=== PATIENT | male | born 1940 | race Caucasian/White ===

== ENCOUNTER → 2018-03-11 | Outpatient (CLI) | payer OTHER | LOC: CIMAGING 13:08 | PROVIDERS: ATTEND Surgery | DX: M62.08 Separation of muscle (nontraumatic), other site (principal); N32.9 Bladder disorder, unspecified; K57.30 Diverticulosis of large intestine without perforation or abscess without bleeding; I31.3 Pericardial effusion (noninflammatory); I70.0 Atherosclerosis of aorta; R59.0 Localized enlarged lymph nodes; Z90.5 Acquired absence of kidney | CPT/HCPCS: 74176-PO ==

== ENCOUNTER → 2018-03-24 | Outpatient (CLI) | payer OTHER | LOC: BHLMT 11:30 | PROVIDERS: ATTEND Internal Medicine Cardiovascular Disease | DX: I48.91 Unspecified atrial fibrillation (principal); I25.10 Atherosclerotic heart disease of native coronary artery without angina pectoris | CPT/HCPCS: 93306-PO ==

== ENCOUNTER → 2018-03-26 | Outpatient (CLI) | payer OTHER | LOC: FIMAGING 10:37 | PROVIDERS: ATTEND Family Medicine | DX: J90 Pleural effusion, not elsewhere classified (principal); J98.4 Other disorders of lung | CPT/HCPCS: 82607-90 ==

== ENCOUNTER → 2018-04-07 | Outpatient (CLI) | payer OTHER | LOC: BHFA 09:00 | PROVIDERS: ATTEND Internal Medicine Cardiovascular Disease | DX: I25.10 Atherosclerotic heart disease of native coronary artery without angina pectoris (principal) | CPT/HCPCS: 78452; 93017; A9500; J2785 ==

== ENCOUNTER 2018-04-26 10:04 | Day surgery (SDC) | payer OTHER ==
[2018-04-26 11:24] LABS: INR 1.01 (0.83-1.16); PROTIME(PATIENT) 13.5 SEC (12.0-15.0)
[2018-04-26] MEDS ORDERED: MIDAZOLAM 2 MG/2 ML VIAL ONE (11:48)
[2018-04-26] MEDS ORDERED: NALOXONE HCL 0.4 MG/ML INJ ONE (11:48)
[2018-04-26] MEDS ORDERED: FLUMAZENIL 0.5 MG/5 ML MDV IVP ONE (11:48)
[2018-04-26] MEDS ORDERED: fentaNYL 100 MCG/2 ML INJ ONE (11:48)
[2018-04-26] MEDS ORDERED: LIDOCAINE 1% 300 MG/30 ML SDV ONE (12:03)
[2018-04-26] MEDS ORDERED: ACETAMINOPHEN 325 MG TAB PO PRN (12:50)
[2018-04-26] MEDS ORDERED: ONDANSETRON 4 MG/2 ML VIAL IVP PRN (12:50)
--- NOTE | 2018-04-26 12:52 | PDPROPOC ---
Sedation Plan of Care Sedation Plan of Care: vital signs stable, mental status noted, patient educated of risks, benefits, alternatives, patient can tolerate sedation ASA Classification: ASA 2 Planned drugs: fentanyl, midazolam Mallampati Score: Class 2 Mallampati Reference Image: Patient passed 3-3-2 rule?: Yes
--- NOTE | 2018-04-26 12:52 | PDRADPRE ---
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 Plan for CT guided biopsy.) Home medications: Carvedilol [Coreg (*)] 40 mg PO BID 10/03/15 [Last Taken 10/15/15 07:00] Cholecalciferol Vit D3 [Vitamin D3 (*)] 1,000 units PO DAILY 10/03/15 [Last Taken 10/08/15] Cyanocobalamin [Vitamin B12 (*)] 100 mcg PO DAILY 10/03/15 [Last Taken 10/15/15 07:00] Lasix PO BID 04/21/18 [Last Taken Unknown] Psyllium Seed/Dextrose 1 tbs PO BID 04/21/18 [Last Taken Unknown] Allergies/Adverse Reactions: No Known Allergies Allergy (Verified 04/21/18 12:36) Mental status: A&Ox3 Heart exam: regular rate and rhythm Lungs exam: clear to auscultation Mallampati Score: Class 2
--- NOTE | 2018-04-26 12:53 | PDRADPN ---
Radiology Procedure Note Date of Procedure: 04/26/18 Radiologist: Justus Villafana Anesthesia: IV Sedation Pre-op Diagnosis: Bladder CA Post-op Diagnosis: Bladder CA Indication: Right iliac LN biopsy Procedure: CT guided biopsy Finding(s): 18 ga core specimens obtained. Inf/Abcess present in the surg proc area at time of surgery?: No
[2018-04-26 14:24] VITALS: BP 131/88
[2018-04-26] MEDS ORDERED: MIDAZOLAM 2 MG/2 ML VIAL IVP PRN (17:10)
[2018-04-26] MEDS ORDERED: FLUMAZENIL 0.5 MG/5 ML MDV IVP PRN (17:10)
[2018-04-26] MEDS ORDERED: fentaNYL 100 MCG/2 ML INJ IVP PRN (17:10)
[2018-04-26] MEDS ORDERED: NALOXONE HCL 0.4 MG/ML INJ IVP PRN (17:10)
[2018-04-26] MEDS ORDERED: NS 1,000 ML IV SCH (17:15)
== END 2018-04-26 14:24 | disposition home or self-care (01) ==
LOC: FIMAGING 10:04
PROVIDERS: ATTEND Internal Medicine Hematology & Oncology
PROC: 07BH3ZX Excision of Right Inguinal Lymphatic, Percutaneous Approach, Diagnostic (ICD-10-PCS; principal; 2018-04-26 13:10)
DX: C77.5 Secondary and unspecified malignant neoplasm of intrapelvic lymph nodes (principal); C65.1 Malignant neoplasm of right renal pelvis; Z95.0 Presence of cardiac pacemaker
CPT/HCPCS: J2250; J2310; J3010